=== PATIENT | female | born 1995 | race African-American/Black ===

== ENCOUNTER 2023-12-19 12:17 | Emergency (ER) | payer MEDICAID ==
[~2023-12-19] VITALS: Ht 152.4 cm; Wt 43.3 kg
[2023-12-19 12:59] LABS: BASOPHILS # (AUTO) 0.1 X10'3 (0-0.2); BASOPHILS % (AUTO) 0.7 % (0-1); EOSINOPHILS # (AUTO) 0.1 X10'3 (0-0.9); EOSINOPHILS % (AUTO) 0.8 % (0-6); HEMATOCRIT 39.9 % (35.0-45.0); HEMOGLOBIN 13.2 g/dl (12.0-16.0); LYMPHOCYTES # (AUTO) 1.9 X10'3 (1.1-4.8); LYMPHOCYTES % (AUTO) 20.7 % (21-51); MEAN CORPUSCULAR HEMOGLOBIN 28.5 PG (27.0-31.0); MEAN CORPUSCULAR HGB CONC 33.1 g/dL (33.0-36.5); MEAN CORPUSCULAR VOLUME 86.1 FL (78-98); MEAN PLATELET VOLUME 9.3 FL (7.4-10.4); MONOCYTES # (AUTO) 0.8 X10'3 (0-0.9); MONOCYTES % (AUTO) 9.1 % (2-12); NEUTROPHILS # (AUTO) 6.3 X10'3 (1.8-7.7); NEUTROPHILS % (AUTO) 68.7 % (42-75); PLATELET COUNT 218 X10'3 (140-440); RED BLOOD COUNT 4.64 X10'6 (4.20-5.60); RED CELL DISTRIBUTION WIDTH 13.9 % (11.5-14.5); WHITE BLOOD COUNT 9.2 X10'3 (4.5-11.0)
[2023-12-19 13:10] LABS: ALANINE AMINOTRANSFERASE 19 U/L (12-78); ALBUMIN 3.9 G/DL (3.4-5.0); ALKALINE PHOSPHATASE 56 IU/L (46-116); ANION GAP 9 (8-16); ASPARTATE AMINO TRANSFERASE 28 U/L (10-37); BILIRUBIN,TOTAL 0.6 MG/DL (0.1-1.0); BLOOD UREA NITROGEN 6 MG/DL (7-18); BUN/CREATININE RATIO 8.1 (10.0-20.0); CHLORIDE 105 MMOL/L (99-107); CREATININE 0.74 MG/DL (0.40-0.90); GLUCOSE 94 MG/DL (70-104); POTASSIUM 3.4 MMOL/L (3.5-5.1); SODIUM 140 MMOL/L (135-145); TOTAL CARBON DIOXIDE 25.7 MMOL/L (24-32); TOTAL PROTEIN 7.7 G/DL (6.4-8.2); eCRCL 79 ML/MIN; eGFR > 90 ML/MIN
[2023-12-19 13:59] VITALS: TEMP 98.1
[2023-12-19 14:01] LABS: BETA HCG,QUANTITATIVE 45 mIU/ml
[2023-12-19 15:11] VITALS: BP 138/92; PULSE 85; RESP 15; O2SAT 100
== END 2023-12-19 15:12 | disposition home or self-care (01) ==
LOC: ER 12:18
DX: O20.0 Threatened abortion (principal); M54.50 Low back pain, unspecified; R10.2 Pelvic and perineal pain
CPT/HCPCS: 36415; 76801; 80053; 84702; 85025; 86900; 86901; 99284

== ENCOUNTER 2023-12-19 20:38 | Emergency (ER) | payer MEDICAID ==
[~2023-12-19] VITALS: Ht 152.4 cm; Wt 56.8 kg
[2023-12-19] MEDS: morphine 4 MG/ML inj SYRINge IM ONE (21:53)
[2023-12-19 22:01] LABS: BASOPHILS # (AUTO) 0.1 X10'3 (0-0.2); BASOPHILS % (AUTO) 0.6 % (0-1); MEAN CORPUSCULAR VOLUME 85.6 FL (78-98); MONOCYTES # (AUTO) 0.7 X10'3 (0-0.9); PLATELET COUNT 206 X10'3 (140-440); RED CELL DISTRIBUTION WIDTH 13.4 % (11.5-14.5)
[2023-12-19 22:03] LABS: EOSINOPHILS % (AUTO) 0.2 % (0-6); HEMATOCRIT 36.3 % (35.0-45.0); HEMOGLOBIN 12.2 g/dl (12.0-16.0); LYMPHOCYTES # (AUTO) 1.3 X10'3 (1.1-4.8); LYMPHOCYTES % (AUTO) 13.5 % (21-51); MEAN CORPUSCULAR HEMOGLOBIN 28.6 PG (27.0-31.0); MEAN CORPUSCULAR HGB CONC 33.5 g/dL (33.0-36.5); MEAN PLATELET VOLUME 9.5 FL (7.4-10.4); MONOCYTES % (AUTO) 7.9 % (2-12); NEUTROPHILS # (AUTO) 7.2 X10'3 (1.8-7.7); NEUTROPHILS % (AUTO) 77.8 % (42-75); RED BLOOD COUNT 4.24 X10'6 (4.20-5.60); WHITE BLOOD COUNT 9.3 X10'3 (4.5-11.0)
[2023-12-19 22:46] LABS: GIANT PLATELET FEW; LARGE PLATELETS FEW; PLATELET ESTIMATE NORMAL
[2023-12-19 23:10] VITALS: BP 100/48; PULSE 70; RESP 14; TEMP 98; O2SAT 98
== END 2023-12-20 00:04 | disposition home or self-care (01) ==
LOC: ER 20:39
DX: O20.9 Hemorrhage in early pregnancy, unspecified (principal); Z3A.00 Weeks of gestation of pregnancy not specified
CPT/HCPCS: 36415; 85008; 85025; 96372; 99285; J2270

== ENCOUNTER 2024-01-24 12:03 | Emergency (ER) | payer MEDICAID ==
[~2024-01-24] VITALS: Ht 152.4 cm; Wt 45.5 kg
[2024-01-24] MEDS: ondansetron/PF 4mg/2ml inj IV ONE (13:09)
[2024-01-24] MEDS: normal saline 1000ML IV soln IVB ONE (13:09)
[2024-01-24] MEDS ORDERED: ketorolac trometh 30MG/ML vial 30 MG/ML VIAL IV ONE (13:15)
[2024-01-24 13:16] LABS: BASOPHILS % (AUTO) 0.6 % (0-1); EOSINOPHILS % (AUTO) 0.2 % (0-6); HEMOGLOBIN 13.6 g/dl (12.0-16.0); MONOCYTES # (AUTO) 0.7 X10'3 (0-0.9); MONOCYTES % (AUTO) 7.3 % (2-12)
[2024-01-24 13:19] LABS: LYMPHOCYTES # (AUTO) 2.1 X10'3 (1.1-4.8); LYMPHOCYTES % (AUTO) 23.9 % (21-51); MEAN CORPUSCULAR HEMOGLOBIN 28.4 PG (27.0-31.0); MEAN CORPUSCULAR HGB CONC 33.1 g/dL (33.0-36.5); MEAN CORPUSCULAR VOLUME 85.8 FL (78-98); MEAN PLATELET VOLUME 9.7 FL (7.4-10.4); NEUTROPHILS # (AUTO) 6.1 X10'3 (1.8-7.7); PLATELET COUNT 187 X10'3 (140-440); RED BLOOD COUNT 4.78 X10'6 (4.20-5.60); RED CELL DISTRIBUTION WIDTH 13.8 % (11.5-14.5)
[2024-01-24] MEDS: ketorolac trometh 15mg/ml vial 15 MG/ML ML IV ONE (13:32)
[2024-01-24 14:09] LABS: ALANINE AMINOTRANSFERASE 15 U/L (12-78); ALBUMIN 4.4 G/DL (3.4-5.0); ALBUMIN/GLOBULIN RATIO 1.1 (1.1-1.5); ALKALINE PHOSPHATASE 61 IU/L (46-116); ANION GAP 13 (8-16); ASPARTATE AMINO TRANSFERASE 17 U/L (10-37); BILIRUBIN,TOTAL 0.6 MG/DL (0.1-1.0); BLOOD UREA NITROGEN 12 MG/DL (7-18); BUN/CREATININE RATIO 14.1 (10.0-20.0); CALCIUM 9.6 MG/DL (8.5-10.1); CHLORIDE 105 MMOL/L (99-107); CREATININE 0.85 MG/DL (0.40-0.90); GLUCOSE 100 MG/DL (70-104); POTASSIUM 3.5 MMOL/L (3.5-5.1); SODIUM 142 MMOL/L (135-145); TOTAL CARBON DIOXIDE 23.8 MMOL/L (24-32); TOTAL PROTEIN 8.5 G/DL (6.4-8.2); eCRCL 72 ML/MIN; eGFR > 90 ML/MIN
[2024-01-24 14:15] LABS: BETA HCG,QUANTITATIVE < 1.0 mIU/ml
[2024-01-24] MEDS: oxyCODONE IR 5mg (immed. release) tablet PO ONE (15:26)
[2024-01-24 15:27] LABS: BILIRUBIN,URINE NEGATIVE (Neg); CLARITY,URINE SLIGHTLY CLOUDY (Clear); COLOR,URINE YELLOW (Yellow); GLUCOSE, URINE NEGATIVE (Neg); KETONES,URINE TRACE mg/dl (Neg); LEUKOCYTE ESTERASE ,URINE NEGATIVE (Neg); NITRITES, URINE NEGATIVE (Neg); OCCULT BLOOD,URINE MODERATE (Neg); PROTEIN,URINE NEGATIVE (Neg); UROBILINOGEN,URINE 0.2 E.U/dL (0.2-1.0)
[2024-01-24 15:35] LABS: UA COLLECTION TYPE NON-SPECIFIED
[2024-01-24 15:36] LABS: MUCUS STRANDS FEW /LPF (Neg); SQUAMOUS EPITHELIAL CELL,UR MODERATE /LPF (FEW)
[2024-01-24 15:37] LABS: BACTERIA,URINE FEW /HPF (Neg); WBC,URINE 0-4 /HPF (0-4)
[2024-01-24] MEDS ORDERED: CefTRIAXone 500MG IM Kit w/LIDOcaine IM ONE (17:00)
[2024-01-24] MEDS ORDERED: DOXY100C43 PO (17:05)
[2024-01-24] MEDS: DOXYCYCLINE 100MG CAPSULE PO STA (17:28)
[2024-01-24] MEDS: CefTRIAXone/D5W-Rocephin 1gm 50 ML IV ONE (17:43)
[2024-01-24 18:17] VITALS: BP 122/69; PULSE 64; RESP 18; TEMP 97.5; O2SAT 100
== END 2024-01-24 18:19 | disposition home or self-care (01) ==
LOC: ER 12:04
DX: O23.90 Unspecified genitourinary tract infection in pregnancy, unspecified trimester (principal); O20.9 Hemorrhage in early pregnancy, unspecified; F17.200 Nicotine dependence, unspecified, uncomplicated; Z3A.00 Weeks of gestation of pregnancy not specified
CPT/HCPCS: 36415; 76856; 80053; 81001; 84702; 85025; 96361; 96365; 96375; 99285; J0696; J1885; J2405; J7030

== ENCOUNTER 2024-02-06 16:46 | Emergency (ER) | payer MEDICAID ==
[~2024-02-06] VITALS: Ht 152.4 cm; Wt 43.5 kg
[2024-02-06 18:14] LABS: BILIRUBIN,URINE NEGATIVE (Neg); CLARITY,URINE SLIGHTLY CLOUDY (Clear); COLOR,URINE YELLOW (Yellow); GLUCOSE, URINE NEGATIVE (Neg); KETONES,URINE TRACE mg/dl (Neg); LEUKOCYTE ESTERASE ,URINE NEGATIVE (Neg); NITRITES, URINE NEGATIVE (Neg); OCCULT BLOOD,URINE SMALL (Neg); PH,URINE 6.5 (4.8-8.0); PROTEIN,URINE NEGATIVE (Neg); UROBILINOGEN,URINE 0.2 E.U/dL (0.2-1.0)
[2024-02-06] MEDS ORDERED: DIF150T PO (18:15)
[2024-02-06 18:16] VITALS: BP 122/78; PULSE 64; RESP 14; TEMP 97.4; O2SAT 97
[2024-02-06 18:19] LABS: UA COLLECTION TYPE CLN CATCH MIDSTREAM
[2024-02-06 18:20] LABS: MUCUS STRANDS MANY /LPF (Neg); SQUAMOUS EPITHELIAL CELL,UR MANY /LPF (FEW)
[2024-02-06 18:21] LABS: AMORPHOUS PHOSPHATES 2+; BACTERIA,URINE 1+ /HPF (Neg); RBC,URINE 0-2 /HPF (0-2); TRANSITIONAL EPI CELLS,URINE FEW /HPF
[2024-02-06 18:22] LABS: URINE HCG NEGATIVE (NEG)
== END 2024-02-06 18:23 | disposition home or self-care (01) ==
LOC: ER 16:50
DX: N73.8 Other specified female pelvic inflammatory diseases (principal); Z88.1 Allergy status to other antibiotic agents
CPT/HCPCS: 81001; 81025; 99283

== ENCOUNTER 2024-04-01 14:48 | Emergency (ER) | payer MEDICAID ==
[~2024-04-01] VITALS: Ht 152.4 cm; Wt 47.7 kg
[2024-04-01 14:51] VITALS: TEMP 97.7
[2024-04-01] MEDS ORDERED: ketorolac trometh 15mg/ml vial 15 MG/ML ML IV ONE (15:35)
[2024-04-01] MEDS: normal saline 1000ml 1,000 ML IV ONE (16:01)
[2024-04-01] MEDS: ketorolac trometh 30MG/ML vial 30 MG/ML VIAL IV ONE (16:02)
[2024-04-01] MEDS ORDERED: acetaminophen 1,000mg/100ml IV 100 ML IV SCH ×2 (16:20→20:00)
[2024-04-01 16:24] LABS: BASOPHILS # (AUTO) 0.1 X10'3 (0-0.2); BASOPHILS % (AUTO) 0.6 % (0-1); EOSINOPHILS % (AUTO) 0.1 % (0-6); HEMATOCRIT 35.1 % (35.0-45.0); HEMOGLOBIN 11.7 g/dl (12.0-16.0); LYMPHOCYTES # (AUTO) 1.4 X10'3 (1.1-4.8); MEAN CORPUSCULAR HEMOGLOBIN 27.8 PG (27.0-31.0); MEAN CORPUSCULAR HGB CONC 33.2 g/dL (33.0-36.5); MEAN CORPUSCULAR VOLUME 83.8 FL (78-98); MEAN PLATELET VOLUME 9.1 FL (7.4-10.4); MONOCYTES # (AUTO) 0.5 X10'3 (0-0.9); MONOCYTES % (AUTO) 5.7 % (2-12); NEUTROPHILS # (AUTO) 6.6 X10'3 (1.8-7.7); NEUTROPHILS % (AUTO) 77.6 % (42-75); PLATELET COUNT 226 X10'3 (140-440); RED BLOOD COUNT 4.19 X10'6 (4.20-5.60); RED CELL DISTRIBUTION WIDTH 13.7 % (11.5-14.5); WHITE BLOOD COUNT 8.5 X10'3 (4.5-11.0)
[2024-04-01 16:27] LABS: ALANINE AMINOTRANSFERASE 20 U/L (12-78); ALBUMIN 3.9 G/DL (3.4-5.0); ALBUMIN/GLOBULIN RATIO 1.1 (1.1-1.5); ALKALINE PHOSPHATASE 57 IU/L (46-116); ANION GAP 7 (8-16); ASPARTATE AMINO TRANSFERASE 17 U/L (10-37); BILIRUBIN,TOTAL 0.3 MG/DL (0.1-1.0); BLOOD UREA NITROGEN 11 MG/DL (7-18); BUN/CREATININE RATIO 13.1 (10.0-20.0); CALCIUM 8.7 MG/DL (8.5-10.1); CHLORIDE 106 MMOL/L (99-107); CREATININE 0.84 MG/DL (0.40-0.90); GLUCOSE 104 MG/DL (70-104); POTASSIUM 3.2 MMOL/L (3.5-5.1); SODIUM 140 MMOL/L (135-145); TOTAL CARBON DIOXIDE 27.5 MMOL/L (24-32); TOTAL PROTEIN 7.6 G/DL (6.4-8.2); eCRCL 73 ML/MIN; eGFR > 90 ML/MIN
[2024-04-01] MEDS: acetaminophen 1,000mg/100ml IV 100 ML IV ONE (16:50)
[2024-04-01] MEDS ORDERED: ONDA-243 PO (17:47)
[2024-04-01 17:48] VITALS: BP 148/74; PULSE 84; RESP 16; O2SAT 99
== END 2024-04-01 17:49 | disposition home or self-care (01) ==
LOC: ER 14:49
DX: U07.1 COVID-19 (principal); R51.9 Headache, unspecified; E11.9 Type 2 diabetes mellitus without complications; R11.2 Nausea with vomiting, unspecified; Z88.1 Allergy status to other antibiotic agents; Z91.012 Allergy to eggs; Z91.040 Latex allergy status
CPT/HCPCS: 36415; 71045; 80053; 82948; 85025; 96361; 96374; 96375; 99284; J0131; J1885; J7030

== ENCOUNTER 2024-07-04 14:43 | Emergency (ER) | payer MEDICAID ==
[~2024-07-04] VITALS: Ht 152.4 cm; Wt 41.9 kg
[~2024-07-04 14:43] MED LIST: ONDA-243 PO
[2024-07-04 14:46] VITALS: TEMP 97.6
[2024-07-04 15:51] LABS: LYMPHOCYTES # (AUTO) 2.6 X10'3 (1.1-4.8); MONOCYTES # (AUTO) 0.5 X10'3 (0-0.9); NEUTROPHILS # (AUTO) 2.2 X10'3 (1.8-7.7); RED BLOOD COUNT 4.64 X10'6 (4.20-5.60)
[2024-07-04 15:53] LABS: BASOPHILS % (AUTO) 0.9 % (0-1); EOSINOPHILS % (AUTO) 0.4 % (0-6); HEMATOCRIT 39.6 % (35.0-45.0); HEMOGLOBIN 13.1 g/dl (12.0-16.0); LYMPHOCYTES % (AUTO) 48.5 % (21-51); MEAN CORPUSCULAR HEMOGLOBIN 28.1 PG (27.0-31.0); MEAN CORPUSCULAR VOLUME 85.2 FL (78-98); MEAN PLATELET VOLUME 8.9 FL (7.4-10.4); MONOCYTES % (AUTO) 9.4 % (2-12); NEUTROPHILS % (AUTO) 40.8 % (42-75); PLATELET COUNT 212 X10'3 (140-440); RED CELL DISTRIBUTION WIDTH 13.8 % (11.5-14.5); WHITE BLOOD COUNT 5.3 X10'3 (4.5-11.0)
[2024-07-04 16:11] LABS: ALBUMIN 4.6 G/DL (3.4-5.0); ANION GAP 11 (8-16); BLOOD UREA NITROGEN 12 MG/DL (7-18); BUN/CREATININE RATIO 16.2 (10.0-20.0); CALCIUM 9.6 MG/DL (8.5-10.1); CHLORIDE 104 MMOL/L (99-107); CREATININE 0.74 MG/DL (0.40-0.90); GLUCOSE 98 MG/DL (70-104); POTASSIUM 3.3 MMOL/L (3.5-5.1); SODIUM 141 MMOL/L (135-145); TOTAL CARBON DIOXIDE 25.9 MMOL/L (24-32); eCRCL 76 ML/MIN; eGFR > 90 ML/MIN
[2024-07-04 16:56] VITALS: RESP 18
[2024-07-04 18:08] VITALS: BP 137/83; PULSE 87; O2SAT 98
== END 2024-07-04 18:10 | disposition home or self-care (01) ==
LOC: ER 14:44
DX: R07.89 Other chest pain (principal); I10 Essential (primary) hypertension; E11.9 Type 2 diabetes mellitus without complications; Z88.1 Allergy status to other antibiotic agents; Z91.012 Allergy to eggs; Z91.040 Latex allergy status
CPT/HCPCS: 71045; 80048; 84484; 85025; 93005; 99285

== ENCOUNTER 2024-10-12 19:15 | Emergency (ER) | payer MEDICAID ==
[~2024-10-12] VITALS: Ht 152.4 cm; Wt 50.5 kg
--- NOTE | 2024-10-12 19:23 | ELECTROCARDIOGRAPH REPORT ---
[facility] Test Date: 2024-10-12 Test Time: 19:20:51 Pat Name: LES MENDES Department: EMERGENCY ROOM Room: Gender: F Bill Clerk: ADALGISA : 1995 Requested By: ALEM OBREGON Order Number: [id number] Reading MD: Measurements Intervals [place] Rate: 87 P: 79 ME: 167 QRS: 80 QRSD: 75 T: 56 QT: 368 QTc: 443 Interpretive Statements Sinus rhythm Please click the below link to view image of tracing.
--- NOTE | 2024-10-12 21:23 | Physician Documentation ---
History of Present Illness ~ Chief Complaint: Anxiety Stated Complaint: CP Time Seen by MD: 20:18 HPI The patient is Seen today with complaints of chest pain. 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 Patient states she still has chest pain but denies any shortness of breath or abdominal pain or nausea, vomiting, diarrhea. Patient states she has previously had two other episodes such as this. Patient has no new or other concern or complaint at this time. Medication Reconciliation Allergies: Coded Allergies: azithromycin (Verified Allergy, Unknown, 10/12/24) egg (Unverified Allergy, Unknown, 10/12/24) latex (Unverified Allergy, Unknown, 10/12/24) Scheduled PRN ONDANSETRON ODT 4mg tablet (Ondansetron Odt), 4 MG PO Q6H PRN for nausea/vomiting Past Medical History Last Menstrual Period: October 12, 2024 Review of Systems Constitutional: Denies: chills, fever, weakness Eyes: Denies: pain, blurred vision ENT: Denies: ear pain, nose pain, throat pain, mouth pain Respiratory: Denies: cough, shortness of breath Cardiovascular: Denies: chest pain, palpitations Gastrointestinal: Denies: abdominal pain, nausea, vomiting Genitourinary: Denies: burning, dysuria Female Genitalia: Denies: vaginal discharge, pelvic pain Neurological: Denies: headache, dizziness Musculoskeletal: Denies: pain, swelling Integumentary: Denies: rash, lesions Allergic/Immunologic: Denies: hives, itching Hematologic/Lymphatic: Denies: no symptoms reported Psychiatric: Denies: depression, anxiety Physical Exam Vital Signs: Heart Rate: 97, Respiratory Rate: 20, BP: 138/81, Pulse Oximetry: 99, Weight: 50.450 Physical Exam General: Awake and Alert, no acute distress. HEENT: Conjunctiva pink, Sclera clear, Mucus Membranes moist. Neck: Supple without masses and tenderness. Resp: Unlabored. Lungs clear to auscultation bilaterally. Chest: Patient on exam does have highly reproducible tenderness to palpation of the left side of her chest. I do not appreciate any injury or ecchymosis or swelling. Heart: Regular Rate and rhythm, normal S1 and S2 without murmur, rub or gallop. Abdomen: Soft and non tender no organomegaly Extremities: No cyanosis,clubbing or edema. Skin: Warm and Dry. Progress Results/Orders Results/Orders Orders - SHAFERHARRIETAMANDA R PAC Chest,Two Views (10/12/24 21:20) Completed Orders - SHAFERHARRIET MARTINEW R PAC Cbc/Diff (10/12/24 21:20) MG (10/12/24 21:20) PBNP (10/12/24 21:20) BMP (10/12/24 21:20) Hs Troponin I W Calculations (10/12/24 21:20) Chest,Two Views (10/12/24 21:20) Vital Signs 10/12/24 10/12/24 19:17 23:09 Pulse 97 89 Resp 20 16 B/P (MAP) 138/81 132/78 (96) Pulse Ox 99 99 O2 Flow Rate 0 Laboratory Tests Test 10/12/24 21:37 White Blood Count 10.2 Red Blood Count 4.45 Hemoglobin 12.7 Hematocrit 37.6 Mean Corpuscular Volume 84.5 Mean Corpuscular Hemoglobin 28.6 Mean Corpuscular Hemoglobin Concent 33.8 Red Cell Distribution Width 13.5 Platelet Count 182 Mean Platelet Volume 9.2 Neutrophils (%) (Auto) 74.1 Lymphocytes (%) (Auto) 19.0 L Monocytes (%) (Auto) 6.2 Eosinophils (%) (Auto) 0.1 Basophils (%) (Auto) 0.6 Neutrophils # (Auto) 7.6 Lymphocytes # (Auto) 1.9 Monocytes # (Auto) 0.6 Eosinophils # (Auto) 0.0 Basophils # (Auto) 0.1 CBC Comment Sodium Level 140 Potassium Level 3.3 L Chloride Level 106 Carbon Dioxide Level 25.7 Anion Gap 8 Blood Urea Nitrogen 11 Creatinine 0.72 Estimated GFR/1.73 m2 > 90 BUN/Creatinine Ratio 15.3 Glucose Level 100 Calcium Level 9.0 Magnesium Level 1.8 Troponin I High Sensitivity 4 Pro-B-Type Natriuretic Peptide 123 Albumin 4.2 Chemistry Comments EKG/XRAY/CT/US/VASC/MRI EKG : Additional Comment EKG interpreted by myself today shows regular rate of 87 beats per minute, normal sinus rhythm, no axis deviation, no ST segment elevation or sign of ischemic changes. Chest X-Ray : Additional Comments Chest x-ray interpreted by myself today shows no large effusion, no large infiltrate, normal mediastinum. DIAGNOSTIC RADIOLOGY Patient: LES MENDES Medical Record: [id number] [facility] : 1995, Age: 29 Sex: Female Location: ER Patient Status: [facility] ER Service Date/Time: 10/12/242119 Ordering Physician: AMANDA SHAFER PAC Exam: CHEST,TWO VIEWS CHEST RADIOGRAPH Indication: chest pain Technique: Frontal and lateral view of the chest was obtained Comparison: None FINDINGS: Lines and Tubes: None Lungs: Clear Pleura: No effusion. No pneumothorax. Cardiomediastinal contours: Unremarkable Bones: Unremarkable IMPRESSION: No evidence of acute disease. Electronically Signed by:GEORGINA TOMLINSON DO Date & Time: 10/12/242146 Dictated by: GEORGINA TOMLINSON DO Dictation date and time: 10/12/242146 Primary Care Provider: NO PRIMARY CARE PROVIDER cc: AMANDA SHAFER PAC ~ Heart Score: Heart Score Response (Comments) Value History Slightly Suspicious 0 EKG Normal 0 Age <45 0 Risk Factors 1 or 2 risk factors 1 Troponin Normal limit 0 Total 1 Medical Decision Making Findings The patient is Seen today with complaints of chest pain. 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 Patient states she still has chest pain but denies any shortness of breath or abdominal pain or nausea, vomiting, diarrhea. Patient states she has previously had two other episodes such as this. Patient has no new or other concern or complaint at this time. Patient had labs and EKG and chest x-ray were all unremarkable without any sign of cardiac involvement. Patient will follow up with primary care as soon as possible for referral to Cardiology for possible Holter monitor testing. Patient will return to ED with any worsening, concerning or changing symptoms. Differential Dx:Considerations: Include: angina, aortic dissection, chest wall pain, cholelithiasis, CHF, esophageal reflux/spasm, gastritis, myocardial infarction, pericarditis, pancreatitis, pneumothorax, pulmonary embolus Departure Impression: Primary Impression: Panic attack Additional Impression: Chest wall pain Condition: Improved Discharge Instructions: Syncope, Adult, [id number] Additional Instructions: Patient had labs and EKG and chest x-ray were all unremarkable without any sign of cardiac involvement. Patient will follow up with primary care as soon as possible for referral to Cardiology for possible Holter monitor testing. Patient will return to ED with any worsening, concerning or changing symptoms. Referrals: NO PRIMARY CARE PROVIDER (PCP) Signature Scribe Signature: No scribe Attestation: no scribe AMANDA SHAFER October 12, 2024 21:23
--- NOTE | 2024-10-12 21:50 | RADIOLOGY REPORT ---
CHEST RADIOGRAPH Indication: chest pain Technique: Frontal and lateral view of the chest was obtained Comparison: None FINDINGS: Lines and Tubes: None Lungs: Clear Pleura: No effusion. No pneumothorax. Cardiomediastinal contours: Unremarkable Bones: Unremarkable IMPRESSION: No evidence of acute disease.
[2024-10-12 22:08] LABS: BASOPHILS # (AUTO) 0.1 X10'3 (0-0.2); BASOPHILS % (AUTO) 0.6 % (0-1); EOSINOPHILS % (AUTO) 0.1 % (0-6); HEMATOCRIT 37.6 % (35.0-45.0); HEMOGLOBIN 12.7 g/dl (12.0-16.0); LYMPHOCYTES # (AUTO) 1.9 X10'3 (1.1-4.8); MEAN CORPUSCULAR HEMOGLOBIN 28.6 PG (27.0-31.0); MEAN CORPUSCULAR HGB CONC 33.8 g/dL (33.0-36.5); MEAN CORPUSCULAR VOLUME 84.5 FL (78-98); MEAN PLATELET VOLUME 9.2 FL (7.4-10.4); MONOCYTES # (AUTO) 0.6 X10'3 (0-0.9); MONOCYTES % (AUTO) 6.2 % (2-12); NEUTROPHILS # (AUTO) 7.6 X10'3 (1.8-7.7); NEUTROPHILS % (AUTO) 74.1 % (42-75); PLATELET COUNT 182 X10'3 (140-440); RED BLOOD COUNT 4.45 X10'6 (4.20-5.60); RED CELL DISTRIBUTION WIDTH 13.5 % (11.5-14.5); WHITE BLOOD COUNT 10.2 X10'3 (4.5-11.0)
[2024-10-12 22:12] LABS: ALBUMIN 4.2 G/DL (3.4-5.0); ANION GAP 8 (8-16); BLOOD UREA NITROGEN 11 MG/DL (7-18); BUN/CREATININE RATIO 15.3 (10.0-20.0); CHLORIDE 106 MMOL/L (99-107); CREATININE 0.72 MG/DL (0.40-0.90); GLUCOSE 100 MG/DL (70-104); MAGNESIUM 1.8 MG/DL (1.5-2.4); POTASSIUM 3.3 MMOL/L (3.5-5.1); PRO BRAIN NATRIURETIC PEPTIDE 123 PG/ML (0-125); SODIUM 140 MMOL/L (135-145); TOTAL CARBON DIOXIDE 25.7 MMOL/L (24-32); eCRCL 84 ML/MIN; eGFR > 90 ML/MIN
[2024-10-12 23:09] VITALS: BP 132/78; PULSE 89; RESP 16; O2SAT 99
== END 2024-10-13 00:44 | disposition home or self-care (01) ==
LOC: ER 19:16
DX: R07.89 Other chest pain (principal); F41.0 Panic disorder [episodic paroxysmal anxiety]; Z88.1 Allergy status to other antibiotic agents
CPT/HCPCS: 36415; 71046; 80048; 83735; 83880; 84484; 85025; 93005; 99285

== ENCOUNTER 2024-12-12 10:54 | Emergency (ER) | payer SELFPAY ==
[~2024-12-12] VITALS: Ht 152.4 cm; Wt 43.0 kg
[2024-12-12 11:08] VITALS: BP 144/89; PULSE 87; O2SAT 100
[2024-12-12] MEDS ORDERED: HYDR-3965 PO (12:03)
[2024-12-12] MEDS ORDERED: AMOX500C2 PO (12:03)
--- NOTE | 2024-12-12 12:03 | Physician Documentation ---
HPI ~ General Chief Complaint: Tooth Problem Stated Complaint: TOOTH PAIN Time Seen by MD: 11:11 History of Present Illness HPI Comment 29-year-old female presents to the ED with a complaint of left upper and lower molar pain with the surrounding tissue swelling. Denies any draining denies any nausea vomiting or fevers. States the pain has become unbearable for her. Denies having any dentist Day of Onset: Dec 12, 2024 Medication Reconciliation Allergies: Coded Allergies: azithromycin (Verified Allergy, Unknown, 12/12/24) egg (Unverified Allergy, Unknown, 12/12/24) latex (Unverified Allergy, Unknown, 12/12/24) Scheduled Amoxicillin Trihydrate* (Amoxicillin*), 1 CAP PO Q8H Scheduled PRN Hydrocodone Bit/Acetaminophen 5/325 MG (Ridgefield 5/325 MG), 1 TAB PO Q6H PRN for pain ONDANSETRON ODT 4mg tablet (Ondansetron Odt), 4 MG PO Q6H PRN for nausea/vo miting Review of Systems All Other Systems at this time: Reviewed and Negative ROS As stated above in the HPI, otherwise all systems are reviewed and negative. Physical Exam Vital Signs: Temperature: 99.0, Source: Temporal, Heart Rate: 87, Respiratory Rate: 20, BP: 144/89, Pulse Oximetry: 100, Weight: 43.050 Oxygen Flow Rate: 0 Physical Exam General: Alert, no apparent distress. HEENT: PERRL, EOMI, no injection, moist mucous membranes. Swelling tissue in the left upper and lower molars Neurologic: Oriented x4. Psychiatric: Normal mood and affect. Skin: Normal color, warm and dry. No edema, no ecchymosis. Progress Results/Orders Results/Orders Completed Orders - CARLITOS DAVENPORT NP Hydrocodone/Apap 10/325 (Ridgefield 10/325mg (12/12/24 12:00) Amoxicillin Capsule (Trimox Capsule) (12/12/24 12:00) Medications Received in ER Medications (Trade) Dose Ordered Sig/Earle Route PRN Reason Start Time Stop Time Status Last Admin Dose Admin (Ridgefield 10/325mg tab) 1 tab ONCE ONCE PO 12/12/24 12:00 12/12/24 12:01 DC 12/12/24 12:19 1 TAB (Trimox capsule) 500 mg ONCE ONCE PO 12/12/24 12:00 12/12/24 12:01 DC 12/12/24 12:19 500 MG Vital Signs 12/12/24 12/12/24 12/12/24 11:08 12:19 12:28 Temp 99.0 99.0 Pulse 87 Resp 20 16 B/P (MAP) 144/89 Pulse Ox 100 O2 Flow Rate 0 Medical Decision Making Findings Treat patient empirically for a suspected tooth abscess that has developing he has no submandibular swelling, start her on amoxicillin and give her a few doses of Ridge[place] based on the severity of your symptoms Differential Dx:Considerations: Include: Alveolar fracture, Alveolar osteitis, ANUG, Facial Cellulitis, Periapical abscess, Peridontal abscess, Post-extraction bleeding, Pulpitis, Tooth avulsion, Tooth eruption, Tooth Fracture, Trigeminal neuralgia, Tooth subluxation, Other Departure Disposition: HOME / SELF CARE / HOMELESS Impression: Primary Impression: Dental abscess Condition: Stable Discharge Instructions: Dental Caries, Adult, Dental Abscess Referrals: NO PRIMARY CARE PROVIDER (PCP) Prescriptions Hydrocodone Bit/Acetaminophen 5/325 MG (Ridgefield 5/325 MG) 5 Mg/325 Mg Tablet 1 TAB PO Q6H PRN for pain, #14 TAB Prov: CARLITOS DAVENPORT BOAT [employer]IST OPERATOR HELPER 12/12/24 Amoxicillin Trihydrate* (Amoxicillin*) 500 Mg Capsule 1 CAP PO Q8H for 10 Days, #30 CAP Prov: CARLITOS DAVENPORT [employer]AT [employer] OPERATOR HELPER 12/12/24 Education Educated: Patient Educated regarding: diagnosis Signature Scribe Signature: 5 Attestation: Scribed for Carlitos Davenport Flash Ranging Crewmember by Carlitos Licea NP . 12/12/24 18:31 CARLITOS DAVENPORT NP Dec 12, 2024 12:03
[2024-12-12 12:19] VITALS: RESP 16
[2024-12-12] MEDS: HYDROcodone/acetaminophen 10/325mg tab PO ONE (12:19)
[2024-12-12 12:28] VITALS: TEMP 99
== END 2024-12-12 12:29 | disposition home or self-care (01) ==
LOC: ER 10:54
DX: K04.7 Periapical abscess without sinus (principal); Z88.1 Allergy status to other antibiotic agents; Z91.012 Allergy to eggs; Z91.040 Latex allergy status
CPT/HCPCS: 99283

== ENCOUNTER 2025-02-15 14:09 | Emergency (ER) | payer SELFPAY ==
[~2025-02-15] VITALS: Ht 153 cm; Wt 40.1 kg
[2025-02-15 15:05] LABS: MEAN PLATELET VOLUME 10.3 FL (7.4-10.4); RED CELL DISTRIBUTION WIDTH 13.7 % (11.5-14.5)
[2025-02-15 15:21] LABS: CREATININE 0.78 MG/DL (0.40-0.90); TOTAL CARBON DIOXIDE 28.6 MMOL/L (24-32); eCRCL 69 ML/MIN; eGFR > 90 ML/MIN
--- NOTE | 2025-02-15 16:06 | Physician Documentation ---
History of Present Illness ~ Chief Complaint: Abdominal Pain w/vomiting Stated Complaint: ABDOMINAL PAIN Time Seen by MD: 14:39 Source: patient Mode of Arrival: POV Exam Limitations: no limitations HPI 29-year-old female who comes here today due to abdominal pain with nausea and vomiting which she states has been an ongoing issue over the past three weeks. She states prior to three weeks ago she was completely normal. She later states I have always had stomach problems. she reports she was recently admitted to [facility] for her abdominal pain and states they did not do anything for me and discharged me without any directions. She states she is a traveling [employer] at [employer] and does not have any primary care provider here. Patient denies any changes in her symptoms since she was seen at [facility] 01/23/25. Patient reports that she does have diabetes. When I asked her further about her diabetes as the discharge papers at [facility] stated that she also told [facility] that she had diabetes and that they checked an A1c which was 5.3 and told her that she does not have diabetes, patient's response to me was "that is because I am treating my diabetes with sugar pills to control it." Medication Reconciliation Allergies: Coded Allergies: azithromycin (Verified Allergy, Unknown, 12/12/24) egg (Unverified Allergy, Unknown, 12/12/24) latex (Unverified Allergy, Unknown, 12/12/24) Scheduled PRN ONDANSETRON ODT 4mg tablet (Ondansetron Odt), 4 MG PO Q6H PRN for nausea/vomiting Past Medical History Past Medical History: Sickle Cell Trait Past Surgical History: noncontributory Drug Use: marijuana Lives In: Home Occupation: employed Review of Systems All Other Systems at this time: Reviewed and Negative Physical Exam Vital Signs: Temperature: 97.7, Source: Temporal, Heart Rate: 99, Respiratory Rate: 17, BP: 119/70, Pulse Oximetry: 100, Weight: 40.100 Physical Exam GENERAL: Alert, When I first evaluated the patient in triage she was crying holding an emesis bag and holding abdomen. When I then evaluated patient a second time, she did not appear to see that I was coming and she was sitting in chair in exam room playing on phone. Emesis bag sitting on gurney was empty. No vomiting throughout the few hours that she was here in the ER. HEENT: NCAT, EOMI, PERRL, normal oropharynx, moist oral mucosa. NECK: Supple, trachea midline. CARDIAC: Regular rate and rhythm, no murmurs, rubs, or gallops. Equal distal pulses. No lower extremity edema, cap refill less than 2 seconds. RESPIRATORY: Equal breath sounds, clear to auscultation bilaterally, no respiratory distress. GASTROINTESTINAL: Non distended, soft, patient reports ttp over epigastric area, No guarding or rebound. MUSCULOSKELETAL: Normal range of motion, nontender, no swelling. Normal gait. NEUROLOGICAL: Awake, alert, and oriented x 3. SKIN: Warm/dry, no pallor, no rash. PSYCH: Alert and appropriate. Affect congruent with mood. Speech is clear. Good eye contact. Progress Results/Orders Results/Orders Vital Signs 02/15/25 02/15/25 14:10 15:36 Temp 97.7 Pulse 99 Resp 17 B/P (MAP) 119/70 Pulse Ox 100 Laboratory Tests Test 02/15/25 14:33 White Blood Count 5.2 Red Blood Count 4.63 Hemoglobin 12.9 Hematocrit 39.2 Mean Corpuscular Volume 84.7 Mean Corpuscular Hemoglobin 28.0 Mean Corpuscular Hemoglobin Concent 33.1 Red Cell Distribution Width 13.7 Platelet Count 179 Mean Platelet Volume 10.3 Neutrophils (%) (Auto) 43.4 Lymphocytes (%) (Auto) 47.0 Monocytes (%) (Auto) 8.2 Eosinophils (%) (Auto) 0.5 Basophils (%) (Auto) 0.9 Neutrophils # (Auto) 2.3 Lymphocytes # (Auto) 2.5 Monocytes # (Auto) 0.4 Eosinophils # (Auto) 0.0 Basophils # (Auto) 0.0 CBC Comment Sodium Level 145 Potassium Level 3.5 Chloride Level 109 H Carbon Dioxide Level 28.6 Anion Gap 7 L Blood Urea Nitrogen 14 Creatinine 0.78 Estimated GFR/1.73 m2 > 90 BUN/Creatinine Ratio 17.9 Glucose Level 105 H Calcium Level 9.6 Total Bilirubin 0.3 Aspartate Amino Transf (AST/SGOT) 12 Alanine Aminotransferase (ALT/SGPT) 18 Alkaline Phosphatase 65 Total Protein 8.3 H Albumin 4.2 Globulin 4.1 Albumin/Globulin Ratio 1.0 L Lipase 20 Chemistry Comments Medical Decision Making Diff Dx Pain:Considerations: Include: AAA, -Complete, - Incomplete, -Inevitable, -Missed, -Threatened, Abruptio placentae, Angina/MO, Aortic dissection, Appendicitis, Bowel obstruction, Cholangitis, Cholecystitis, Cholelithasis, Constipation, Diverticular disease, Dysmenorrhea, Ectopic , Esophageal rupture, Esophagitis, Gastritis/PUD, Gastroenteritis, GI hemorrhage, Hernia, Hepatitis, Inflammatory BD, Ischemic bowel, Mass, Ovarian cyst/torsion, Pancreatitis, PID, Porphyria, Trauma, intraabdominal, Urinary obstruction, Urinary tract infection, Urolithiasis, Other Additional Comments I [facility] 20 minutes [facility] from January [facility] which is when she was admitted and discharged on January 21. I reviewed the gastric emptying study that was performed and was normal. I reviewed the CT scan of the abdomen and pelvis with contrast which was also unremarkable. I reviewed all of the labs including an A1c which was 5.3 and normal. Like [facility], I also explained that this is not diabetes and that she does not have diabetes as an a1c of 5.3 without any medications for diabetes other than "sugar pills" is not diabetes. I reviewed the urine tox which was positive for marijuana negative for everything else, I explained how marijuana can cause cyclic vomiting and there may be a component here that her symptoms are from the marijuana. I recommended trying to reduce and quit marijuana. I reviewed electrolytes which remained normal throughout her time at [facility], CBC which was also normal throughout her time at [facility] and labs done here today which where also normal. I reviewed chest x-ray was also done at [facility] which was negative and no respiratory complaints to warrant repeating this or findings. I do not see any indication to repeat abdominal imaging studies or for further ER treatment. We provided the patient with resources for outpatient care and recommended to return if fever or any new concerning symptoms. Patient does have sickle cell but this is not a sickle cell crisis Departure Time of Disposition: 16:07 Disposition: 01 HOME / SELF CARE / HOMELESS Impression: Primary Impression: Vomiting Qualified Codes: R11.10 - Vomiting, unspecified Additional Impressions: Abdominal pain Qualified Codes: R10.13 - Epigastric pain Marijuana use Condition: Stable Discharge Instructions: Abdominal Pain (Nonspecific) Additional Instructions: I spent 20 minutes reviewing all of the records from [facility] during her admission from January 23 which is when she was admitted and discharged on [place] 25th. I reviewed the gastric emptying study that was performed and was normal. I reviewed the CT scan of the abdomen and pelvis with contrast which was also unremarkable. I reviewed all of the labs including an A1c which was 5.3, urine tox which was positive for marijuana negative for everything else, electrolytes which remained normal throughout her time at [facility], CBC which was also normal throughout her time at [facility]. Chest x-ray was also done which was negative. Her labs today are normal. I do not see any indication to repeat abdominal imaging studies or for further ER treatment. We provided the patient with resources for outpatient care and recommended to return if fever or any new concerning symptoms. Referrals: NO PRIMARY CARE PROVIDER (PCP) Education Educated: Patient Educated regarding: diagnosis, treatment, need for follow up Signature Scribe Signature: x Attestation: DAVI Byrd Feb 15, 2025 16:06
[2025-02-15 16:11] VITALS: PULSE 86
[2025-02-15 16:17] LABS: LEUKOCYTE ESTERASE ,URINE NEGATIVE (Neg); NITRITES, URINE NEGATIVE (Neg); OCCULT BLOOD,URINE LARGE (Neg)
[2025-02-15 16:21] VITALS: BP 157/99; RESP 16; TEMP 97.7; O2SAT 99
[2025-02-15 16:22] LABS: URINE HCG NEGATIVE (NEG)
[2025-02-15 16:27] LABS: UA COLLECTION TYPE CLN CATCH MIDSTREAM
[2025-02-15 16:30] LABS: MUCUS STRANDS MODERATE /LPF (Neg); SQUAMOUS EPITHELIAL CELL,UR MODERATE /LPF (FEW)
== END 2025-02-15 16:27 | disposition home or self-care (01) ==
LOC: ER 14:09
DX: R10.13 Epigastric pain (principal); R11.2 Nausea with vomiting, unspecified; F12.90 Cannabis use, unspecified, uncomplicated; E11.9 Type 2 diabetes mellitus without complications; Z88.1 Allergy status to other antibiotic agents; Z91.040 Latex allergy status; Z91.012 Allergy to eggs
CPT/HCPCS: 36415; 80053; 81001; 81025; 83690; 85025; 99284